=== PATIENT | male | born 1945 | race Caucasian/White ===

== ENCOUNTER 2022-01-24 03:57 | Inpatient (IN) | payer MEDICARE, OTHER ==
[~2022-01-24] VITALS: Ht 188 cm; Wt 78.0 kg
--- NOTE | 2022-01-24 04:12 | NUR ---
BIBRA C/O SYNCOPE IN THE BATHROOM. ABRASION NOTED ON UPPER LIP UPDATED TDAP. A/OX4. TOLERATING R/A WELL WITH NO SOB. CONNECTED PT TO POX AND MONITOR. SAFETY MEASURES IN PLACE.
[2022-01-24] MEDS ORDERED: IV NS 0.9% 500 ML BAG IV ONE (04:30)
--- NOTE | 2022-01-24 04:37 | NUR ---
LENORA DANIELS [phone]
--- NOTE | 2022-01-24 04:52 | NUR ---
RAC #20G S/L BLOOD COLLECTED AND SENT TO LAB
[2022-01-24 04:55] LABS: BASOPHILS % (AUTO) 0.2 % (0.0-2.0); EOSINOPHILS % (AUTO) 0.9 % (0.0-6.0); HEMATOCRIT 42 % (39-51); HEMOGLOBIN 13.9 g/dL (13.5-17.5); LYMPHOCYTES # (AUTO) 1.9 K/uL (0.8-4.8); LYMPHOCYTES % (AUTO) 23.2 % (20.0-44.0); MEAN CORPUSCULAR HGB CONC 33 g/dl (31.0-36.0); MEAN CORPUSCULAR VOLUME 87 fL (80-96); MONOCYTES # (AUTO) 0.8 K/uL (0.1-1.30); NEUTROPHILS # (AUTO) 5.6 K/uL (1.8-8.9); NEUTROPHILS % (AUTO) 66.7 % (43.0-81.0); PLATELET COUNT (AUTO) 138 K/uL (150-450); WHITE BLOOD COUNT (AUTO) 8.4 K/uL (4.3-11.0)
--- NOTE | 2022-01-24 05:05 | NUR ---
URINE COLLECTED AND SENT TO LAB
--- NOTE | 2022-01-24 05:05 | NUR ---
PT TAKEN TO CT VIA [facility]
[2022-01-24 05:07] LABS: CARBON DIOXIDE 28 mmol/L (21-32); CHLORIDE 108 mmol/L (98-107); CREATININE 1.1 mg/dL (0.6-1.3); GLUCOSE 110 mg/dL (74-106); POTASSIUM 4.1 mmol/L (3.5-5.1); SODIUM SERUM 141 mmol/L (136-145); UREA NITROGEN, BLOOD 24 mg/dL (7-18)
[2022-01-24 05:13] LABS: ALANINE AMINOTRANSFERASE 75 U/L (12-78); ALBUMIN 3.4 g/dL (3.4-5.0); ALKALINE PHOSPHATASE 100 U/L (46-116); ASPARTATE AMINOTRANSFERASE 50 U/L (15-37); BILIRUBIN,DIRECT 0.1 mg/dL (0.0-0.2); BILIRUBIN,TOTAL 0.4 mg/dL (0.2-1.0)
--- NOTE | 2022-01-24 07:05 | NUR ---
UPDATED JOCELYNN ([facility]) [phone]
--- NOTE | 2022-01-24 07:15 | NUR ---
Kiki adhikari in [facility] - 01/24/22 at 0719 by BRIDGET ASSISTANT CORPORATE CONTROLLER AT PT'S BEDSIDE
--- NOTE | 2022-01-24 07:24 | NUR ---
MATERIAL HANDLER 2ND SHIFT AT PT'S BEDSIDE
--- NOTE | 2022-01-24 07:30 | NUR ---
RECEIVED PT IN [place]Y AWAKE AND ALERT NO PAIN NOTED OR DIZZNESS AT THINS TIME
--- NOTE | 2022-01-24 08:14 | NUR ---
LAB CALLED AGNIESZKA Faye.5 DR. CHANDRA INFORMED.
--- NOTE | 2022-01-24 08:22 | NUR ---
MOVE SHEET SUBMITTED.
--- NOTE | 2022-01-24 08:27 | NUR ---
COVID SWAB COLLECTED AND SENT TO LAB
--- NOTE | 2022-01-24 08:31 | NUR ---
[facility] CALLED CLEANING AND MAINTENANCE WORKER PAGED.
[2022-01-24] MEDS ORDERED: MAG HYDROX/AL HYDROX/SIMETH 30 ML UDC PO PRN (09:00)
[2022-01-24] MEDS ORDERED: ACETAMINOPHEN 325 MG TABLET PO PRN (09:00)
[2022-01-24] MEDS ORDERED: ONDANSETRON HCL/PF 4 MG/2 ML VIAL IVP PRN (09:00)
[2022-01-24] MEDS ORDERED: FAMO20TA8 PO (09:03)
[2022-01-24] MEDS ORDERED: ATOR80TA PO (09:03)
[2022-01-24] MEDS ORDERED: TERA10CA4 PO (09:03)
--- NOTE | 2022-01-24 09:50 | NUR ---
DR RUTLEDGE CARDIO AT BEDSIDE
--- NOTE | 2022-01-24 09:50 | NUR ---
Dr Swain (otr hazmat company driver) at for eval.
--- NOTE | 2022-01-24 10:09 | NUR ---
GOT BED 327-2
[2022-01-24] MEDS ORDERED: ASPIRIN EC 81 MG TABLET.DR PO ONE (10:11)
[2022-01-24] MEDS: ASPIRIN 81 MG TAB.CHEW PO SCH ×2 (10:13→10:17)
--- NOTE | 2022-01-24 10:14 | NUR ---
DINESES CHEST PAIN
--- NOTE | 2022-01-24 11:00 | NUR ---
UA SENT TO LAB
--- NOTE | 2022-01-24 11:28 | NUR ---
REPORT GIVEN TO FANNY LACKEY OF TELE
[2022-01-24] MEDS: ENOXAPARIN SODIUM 80 MG/0.8 ML DISP.SYRIN SQ SCH ×2 (11:30→20:07)
--- NOTE | 2022-01-24 11:40 | NUR ---
TO ROOM 322-2 STABLE VS DINESES CHEST PAIN OR SOB
[2022-01-24 11:45] VITALS: BP 108/62
[2022-01-24] MEDS ORDERED: ENOXAPARIN SODIUM 80 MG/0.8 ML DISP.SYRIN SQ ONE (11:45)
--- NOTE | 2022-01-24 11:45 | NUR ---
BENCH MANAGER ADMITTING NOTES: ADMITTED 76YO MALE PT IN MED SURG UNIT @1145AM, VIA GURNEY. PATIENT ABLE TO WALK TO HIS BED. ORIENTED TO STAFFS, UNIT AND ROOM MATE. ALERT AND ORIENTED X 4 AND ABLE TO VERBALIZED NEEDS, PATIENT DENIES PAIN AT THIS TIME. NOTED WITH SOME SKIN ISSUES, NOTED WITH LIP ABRASION WITH DISCOLORATION NOTED. RIGHT ELBOW SCABS NOTED. UNABLE TO CHECK THE BACK PATIENT RESTING WILL TRY LATER. FOOD ASSEMBLER KITCHEN IN PLACED WITH CURRENT READING OF SR 64 BPM. ABDOMEN SOFT AND NOT DISTENDED. ABLE TO LIFT UPPER AND LOWER EXTREMITIES. IV ACCESS ON RAC G20 PATENT AND INTACT, WITH NS @75ML/HR. SAFETY PRECAUTIONS INITIATED: BED LOCKED AND IN LOWEST POSITION, SIDE RAILS UP X 2. CALL LIGHT IN EASY REACH FOR HELP. WILL MONITOR PATIENT ACCORDINGLY.
[2022-01-24] MEDS: IV NS 0.9% 1,000 ML IV PRN (13:28)
--- NOTE | 2022-01-24 15:10 | NUR ---
RN NOTES: RECEIVED A CALL FROM LABORATORY, RELAYED LAB RESULT TROP LEVEL 613. INFORMED DR FROST AND STATED "OKAY THANKS"
[2022-01-24 16:00] VITALS: BP 136/67
--- NOTE | 2022-01-24 16:00 | NUR ---
RN NOTES: PATIENT ASKED HIS LATEST TROP LEVEL, RELAYED TO PATIENT EXPLAINED THATS THE REASON WHY WE KEEP HIM IN THE HOSPITAL AND TO MONITOR HIM. PATIENT APPEARS ANXIOUS, DENIES PAIN OR CHEST PAIN AT THIS TIME. TRIED TO CALM PATIENT.
--- NOTE | 2022-01-24 17:17 | NUR ---
RN NOTES: INFORMED DR FROST THAT PT WANTED TO TALK TO HER. DR FROST STATED SHE WILL. PATIENT MADE AWARE.
--- NOTE | 2022-01-24 18:53 | NUR ---
COPY WORKER OPENING NOTES: PATIENT SITTING IN BED. AWAKE, ALERT AND ORIENTED X 4 AND ABLE TO VERBALIZED NEEDS. NO CHANGE IN LOC. DENIES ANY PAIN AT THIS TIME. NO SOB OR CARDIAC DISTRESS NOTED, ON ROOM AIR AND TOLERATING WELL. ON RETAIL SALES MANAGER WITH CURRENT READING OF SR @ 63BPM. PATIENT USING URINAL. SAFETY PRECAUTIONS MAINTAINED: BED LOCKED AND IN LOWEST POSITION, SIDE RAILS UP X 2. CALL LIGHT IN EASY REACH FOR HELP. WILL MONITOR FOR ANY SIGNIFICANT CHANGES. ENDORSED TO SPORT INTERNSHIP FOR CONTINUIITY OF CARE.
--- NOTE | 2022-01-24 19:30 | NUR ---
TELE/RN OPENING NOTE RECEIVED PATIENT RESTING IN BED. AWAKE, ALERT AND ORIENTED X 4. ABLE TO MAKE NEEDS KNOWN. DENIES PAIN AT THIS TIME. CONTINUES ON ROOM AIR WITH NO S/SX OF RESPIRATORY DISTRESS NOTED. IV ACCESS TO RIGHT AC #20G INTACT AND PATENT. CONTINUES ON IVF NS @ 75ML/HR. CONTINUES ON TELE MONITOR WITH CURRENT READING SR. PATIENT IS AMBULATORY WITH ASSISTANCE. CALL LIGHT WITHIN REACH. ASPIRATION, FALL AND SAFETY PRECAUTIONS MAINTAINED. ALL NEEDS ATTENDED TO AT THIS TIME.
[2022-01-24 20:00] VITALS: BP 138/71
--- NOTE | 2022-01-24 20:55 | NUR ---
TELE/RN NOTE RECEIVED CALL FROM LAB WITH CRITICAL LAB VALUE TROPONIN HIGH SENSITIVITY = 485. TRENDING DOWN FROM PREVIOUS RESULTS. MD AWARE. PATIENT CURRENTLY RESTING IN BED. DENIES PAIN/CP.
[2022-01-24] MEDS: ATORVASTATIN 40 MG TABLET PO SCH (21:21)
[2022-01-24] MEDS ORDERED: ZOLPIDEM TARTRATE 5 MG TABLET PO PRN (22:00)
[2022-01-24] MEDS ORDERED: ATORVASTATIN 10 MG TABLET PO SCH (22:00)
[2022-01-25] VITALS (7 sets, daily range): BP systolic 115–153; BP diastolic 62–76
[2022-01-25] MEDS: IV NS 0.9% 1,000 ML IV PRN ×2 (03:19→15:58)
--- NOTE | 2022-01-25 06:30 | NUR ---
TELE/RN CLOSING NOTE PATIENT CURRENTLY SLEEPING IN BED. ALERT AND ORIENTED X 4. ABLE TO MAKE NEEDS KNOWN. DENIES PAIN AT THIS TIME. CONTINUES ON ROOM AIR WITH NO S/SX OF RESPIRATORY DISTRESS NOTED. IV ACCESS TO RIGHT AC #20G INTACT AND PATENT. CONTINUES ON IVF NS @ 75ML/HR. CONTINUES ON TELE MONITOR WITH CURRENT READING SB HR 49. CALL LIGHT WITHIN REACH. ASPIRATION, FALL AND SAFETY PRECAUTIONS MAINTAINED. WILL ENDORSE PLAN OF CARE TO ONCOMING SHIFT RN.
[2022-01-25 07:11] LABS: HEMATOCRIT 39 % (39-51); HEMOGLOBIN 13.2 g/dL (13.5-17.5); MEAN CORPUSCULAR HGB CONC 34 g/dl (31.0-36.0); MEAN CORPUSCULAR VOLUME 86 fL (80-96); RED BLOOD CELL COUNT(AUTO) 4.54 MIL/uL (4.5-6.0); WHITE BLOOD COUNT (AUTO) 9.8 K/uL (4.3-11.0)
[2022-01-25 07:14] LABS: BASOPHILS % (AUTO) 0.2 % (0.0-2.0); EOSINOPHILS % (AUTO) 0.7 % (0.0-6.0); MONOCYTES % (AUTO) 10.2 % (2.0-12.0); NEUTROPHILS % (AUTO) 62.9 % (43.0-81.0)
[2022-01-25 07:15] LABS: LYMPHOCYTES # (AUTO) 2.6 K/uL (0.8-4.8); NEUTROPHILS # (AUTO) 6.2 K/uL (1.8-8.9)
[2022-01-25 07:48] LABS: CALCIUM, SERUM 8.6 mg/dL (8.5-10.1); CARBON DIOXIDE 25 mmol/L (21-32); CHLORIDE 109 mmol/L (98-107); CREATININE 0.9 mg/dL (0.6-1.3); GLUCOSE 89 mg/dL (74-106); PHOSPHORUS 3.4 mg/dL (2.5-4.9); POTASSIUM 3.5 mmol/L (3.5-5.1); SODIUM SERUM 141 mmol/L (136-145); UREA NITROGEN, BLOOD 16 mg/dL (7-18)
[2022-01-25 07:50] LABS: CHOLESTEROL 111 mg/dL (<200); HDL CHOLESTEROL 43 mg/dL (40-60); LDL 51 mg/dL (0-99); TRIGLYCERIDES 115 mg/dL (30-150)
[2022-01-25] MEDS: FAMOTIDINE (20 MG) 20 MG TABLET PO SCH (08:23)
--- NOTE | 2022-01-25 10:00 | NUR ---
BACKUP SAWYER NOTES: RN CALLED RAD DEPT TO INQUIRE ABOUT PROCEDURE TIME. RAD STAFF STATES THERE IS NO TECH AND WILL HAVE TO BE DONE THURSDAY. RN F/U WITH CHARGE NURSE, WAS ABLE TO CONTACT NURSE SUP. ICU AND NURSE SUP OK'D THE PROCEDURE FOR 01/25/2022 @ 1200 BUT IS AWAITING CALL BACK FROM HEAD UP OPERATOR HELPER TECH, WILL CONT TO FOLLOW UP AND UPDATE PT.
[2022-01-25 11:43] LABS: PLATELET COUNT (AUTO) 28 K/uL (150-450)
--- NOTE | 2022-01-25 15:00 | NUR ---
PHARMACY STOCK CLERK NOTES: RN FOLLOWED UP WITH CHARGE NURSE REGARDING CTCA, STATES THAT SHE FOLLOWED UP WITH RAD AUTO TRANSMISSION SPECIALIST BUT THE SCHOOL AGE TEACHER STUDENT SUPPORT COUNSELOR HAS NOT CALLED BACK, NURSE SUP IS AWARE. WILL CONTINUE TO FOLLOW UP THROUGHOUT SHIFT. MADE PT AWARE, PT AND FAMILY WAS UPSET WITH DELAY, WILL ENDORSE ALL INFO TO PM SHIFT.
--- NOTE | 2022-01-25 17:42 | NUR ---
INSERT MOLDING OPERATOR NOTES: FAMILY FRIEND WHO IS AN MD CALLED, ASKED WHY "CT HAS NOT BEEN DONE AND TROPONIN HASN'T BEEN REDRAWN". RN EXPLAINED THE SITUATION TO PT AT BEDSIDE AND FAMILY OVER THE PHONE. ESCALATED TO MINE PROMOTOR, MAIL SORTER AND DELIVERY AND MD AWARE. POSTAL MAIL CARRIER OFFICE CONTACT INFO GIVEN TO PT AND FAMILY FOR UPDATE.
--- NOTE | 2022-01-25 19:08 | NUR ---
UNION ORGANISER CLOSING NOTES: PATIENT RESTING IN BED, AWAKE, ALERT AND ORIENTED X 4. ABLE TO MAKE NEEDS KNOWN. DENIES PAIN AT THIS TIME. CONTINUES ON ROOM AIR WITH NO S/SX OF RESPIRATORY DISTRESS NOTED. IV ACCESS TO RIGHT AC #20G INTACT AND PATENT. CONTINUES ON IVF NS @ 75ML/HR. CONTINUES ON TELE MONITOR WITH CURRENT READING SINUS BRADYCARDIA, HR- 54, MD IS AWARE. PATIENT IS AMBULATORY WITH ASSISTANCE. CALL LIGHT WITHIN REACH. ASPIRATION, FALL AND SAFETY PRECAUTIONS MAINTAINED, WILL ENDORSE TO PM SHIFT.
--- NOTE | 2022-01-25 20:00 | NUR ---
DIRECTOR OF PUBLIC HEALTH NOTES RECEIVED ON BED A/O X4,NO SOB,MINDI CHEST PAIN, ON IVF NS AT 75ML/HR RATE INFUSING WELL ON RIGHT AC SALINE LOCK.VOICING OUT CONCERN ABOUT PROCEDURE THAT WASNT DONE TODAY.ADVISED AND EXPLAINED ABOUT THE PLAN FOR TO TOMORROW AND HE CALM DOWN.WILL CONTINUE TO MONITOR,CALL LIGHT IN REACH,NEEDS ATTENDED.
[2022-01-25] MEDS: ATORVASTATIN 40 MG TABLET PO SCH (20:53)
[2022-01-26] VITALS (9 sets, daily range): BP systolic 113–149; BP diastolic 56–78
--- NOTE | 2022-01-26 00:30 | NUR ---
RADIAGRAPH OPERATOR NOTES AWAKE,VERY MUCH CONCERN ABOUT HIS BLOOD PRESSURE OF 149/70,PULSE RATE OF48,SAYING THIS THE FIRST TIME HE GOT THAT KIND OF READING,REQUESTING TO HAVE DOCTOR ON FLOOR TO TALK WITH,WAS ADVISED THAT WE HAVE HOSPITALIST LANG PATH THERAPIST ON BOARD,DEMANDING A REAL DOCTOR.AND EVEN ASKED TO HAVE NURSING DISTRIBUTOR SALES MANAGER TO COME AND TALK ABOUT HIS CONCERN.
--- NOTE | 2022-01-26 01:00 | NUR ---
COIL CUTTER NOTES NURSING ALTERATIONS EXPERT CAME AND TALK TO PATIENT.
--- NOTE | 2022-01-26 01:30 | NUR ---
BRAZER ASSEMBLER NOTES HOSPITALIST RE CAME AND TALK TO PATIENT.
--- NOTE | 2022-01-26 02:00 | NUR ---
ELECTRODE TURNER AND FINISHER NOTES PATIENT CALM DOWN THIS TIME
[2022-01-26] MEDS: IV NS 0.9% 1,000 ML IV PRN (06:01)
[2022-01-26 06:50] LABS: CALCIUM, SERUM 8.6 mg/dL (8.5-10.1); CREATININE 0.9 mg/dL (0.6-1.3); POTASSIUM 3.6 mmol/L (3.5-5.1)
--- NOTE | 2022-01-26 07:03 | NUR ---
COMBINATION WINDOW INSTALLER NOTES CALM AND QUIET ON BED,IVF INFUSING WELL,SITE PATENT.POSSIBLE CTCA TODAY.REMAINS SB AT 46.IN NO ACUTE DISTRESS.
[2022-01-26 07:06] LABS: BASOPHILS % (AUTO) 0.4 % (0.0-2.0); EOSINOPHILS % (AUTO) 0.8 % (0.0-6.0); HEMATOCRIT 39 % (39-51); HEMOGLOBIN 13.1 g/dL (13.5-17.5); LYMPHOCYTES # (AUTO) 2.6 K/uL (0.8-4.8); LYMPHOCYTES % (AUTO) 26.6 % (20.0-44.0); MEAN CORPUSCULAR HGB CONC 34 g/dl (31.0-36.0); MEAN CORPUSCULAR VOLUME 86 fL (80-96); MONOCYTES # (AUTO) 0.9 K/uL (0.1-1.30); MONOCYTES % (AUTO) 8.9 % (2.0-12.0); NEUTROPHILS # (AUTO) 6.2 K/uL (1.8-8.9); NEUTROPHILS % (AUTO) 63.3 % (43.0-81.0); RED BLOOD CELL COUNT(AUTO) 4.49 MIL/uL (4.5-6.0); WHITE BLOOD COUNT (AUTO) 9.8 K/uL (4.3-11.0)
--- NOTE | 2022-01-26 07:33 | NUR ---
MOBILE GAME ENGINEER OPENING NOTES: RECEIVED PATIENT RESTING IN BED, AWAKE, ALERT AND ORIENTED X 4. ABLE TO MAKE NEEDS KNOWN. DENIES PAIN AT THIS TIME. CONTINUES ON ROOM AIR WITH NO S/SX OF RESPIRATORY DISTRESS NOTED. IV ACCESS TO RIGHT AC #20G INTACT AND PATENT. CONTINUES ON IVF NS @ 75ML/HR. CONTINUES ON TELE MONITOR WITH CURRENT READING SINUS BRADYCARDIA, HR- 48, MD IS AWARE. PATIENT IS AMBULATORY WITH ASSISTANCE. CALL LIGHT WITHIN REACH. ASPIRATION, FALL AND SAFETY PRECAUTIONS MAINTAINED, WILL CONT TO MONITOR.
[2022-01-26 08:49] LABS: PLATELET COUNT (AUTO) 99 K/uL (150-450)
[2022-01-26] MEDS: FAMOTIDINE (20 MG) 20 MG TABLET PO SCH (09:28)
--- NOTE | 2022-01-26 10:30 | NUR ---
VARNISH FINISHER NOTES: SPOKE TO PT AND PT FAMILY AT BEDSIDE REGARDING UPDATES ABOUT CTCA. RN CALLED RAD BEET WORKER O'MIKE AT [phone] FOR ANY UPDATES. PER JONI, THEY HAVE NOT RECEIVED A CALL BACK FROM FREIGHT UNLOADER CREATIVE ENGAGEMENT DIRECTOR DESPITE MULTIPLE ATTEMPTS. PER JONI, PROCEDURE MIGHT HAVE TO BE DONE Thursday01/27/2022 AND THEY ARE AWARE OF STAT ORDER. PER JONI, MD SEAN, MD DIVINA AND VANESSA ARIZMENDI ARE ALL AWARE. RELAYED ALL INFO TO PT AND FAMILY AT BEDSIDE, WILL UPDATE WITH ANY CHANGES, PT AND FAMILY VERBALIZED UNDERSTANDING.
[2022-01-26 15:24] LABS: IRON, SERUM 63 ug/dl (50-175); TOTAL IRON BINDING CAPACITY 241 ug/dl (250-450)
[2022-01-26 15:32] LABS: FERRITIN 73 ng/mL (8-388)
--- NOTE | 2022-01-26 18:34 | NUR ---
NARROW FABRICS WEAVER CLOSING NOTES: PATIENT RESTING IN BED, AWAKE, ALERT AND ORIENTED X 4. ABLE TO MAKE NEEDS KNOWN. DENIES PAIN AT THIS TIME. CONTINUES ON ROOM AIR WITH NO S/SX OF RESPIRATORY DISTRESS NOTED. IV ACCESS TO RIGHT AC #20G INTACT AND PATENT. CONTINUES ON IVF NS @ 75ML/HR. CONTINUES ON TELE MONITOR WITH CURRENT READING SINUS BRADYCARDIA, HR- 49, MD IS AWARE. PATIENT IS AMBULATORY WITH ASSISTANCE. CALL LIGHT WITHIN REACH. ASPIRATION, FALL AND SAFETY PRECAUTIONS MAINTAINED, WILL ENDORSE TO PM SHIFT.
--- NOTE | 2022-01-26 19:30 | NUR ---
MEAT CUTTER NOTES RECEIVED LAYIING ON BED,BREATHING REGULAR,NOT IN ANY FORM OF DISTRESS,IVF NS AT 75ML/HR RATE INFUSING WELL ON RIGHT AC SALINE LOCK.CALL LIGHT IN REACH,NEEDS ANTICIPATED.
[2022-01-26] MEDS: ATORVASTATIN 40 MG TABLET PO SCH (21:33)
[2022-01-27] VITALS: BP 136/66
[2022-01-27 04:00] VITALS: BP 144/63
[2022-01-27] MEDS: IV NS 0.9% 1,000 ML IV PRN (04:10)
--- NOTE | 2022-01-27 07:00 | NUR ---
NET SORTER NOTES FAIRLY RESTED AT NIGHT,AWAITING TO BE PICK FOR CT ANGIO HEART WITH 3D IMAGE.IN NO ACUTE DISTRESS.
--- NOTE | 2022-01-27 07:20 | NUR ---
RN OPENING NOTE, PT IS AWAKE, ALERT X4. PT SCHEDULED FOR CT ANGIOGRAM THIS MORNING. AWAITING TRANSPORT. NO SIGNS OF RESPIRATORY DISTRESS OR SOB AT THIS TIME. PT ON TELE MONITORING, READING SINUS JER AT 43BPM. IV 20 G IN RIGHT FOREARM INTACT AND PATENT INFUSING AT 75ML/HR OF NORMAL SALINE. DENIES ANY PAIN AT THIS TIME. CALL LIGHT WITHIN REACH, BED IN LOWEST POSITION, SIDE RAILS UP X2. PT RESTING COMFORTABLY. WILL CONTINUE TO MONITOR.
[2022-01-27 08:18] VITALS: BP 149/66
--- NOTE | 2022-01-27 09:00 | NUR ---
FOOD TRAY ASSEMBLER NOTE PATIENT BROUGHT DOWN FOR SCHEDULED PROCEDURE.
--- NOTE | 2022-01-27 09:00 | NUR ---
WOUND CARE CONSULT: PT OFF UNIT AT THIS TIME. SPOKE WITH RN WHO STATES THAT PT HAS DRY ABRASIONS TO LIPS, PRESENT ON ADMISSION. WILL SEE PRN.
[2022-01-27] MEDS ORDERED: IV NS 0.9% 250 ML IV ONE (09:12)
[2022-01-27] MEDS ORDERED: CT SWABBABLE VALVE TRANS SET 1 EA INFUS.SET MC ONE (09:12)
[2022-01-27] MEDS ORDERED: NITROGLYCERIN 0.4 MG/TAB BOTTLE ONE (09:12)
[2022-01-27] MEDS ORDERED: IOHEXOL-350 100 ML VIAL IV ONE (09:12)
[2022-01-27] MEDS ORDERED: NITROGLYCERIN 0.4 MG/TAB BOTTLE SL PRN (09:30)
[2022-01-27] MEDS ORDERED: METOPROLOL TARTRATE INJ 5 MG/5 ML AMPUL IVP PRN (09:30)
[2022-01-27] MEDS: FAMOTIDINE (20 MG) 20 MG TABLET PO SCH (09:58)
--- NOTE | 2022-01-27 10:00 | NUR ---
CABLE RIGGER NOTE PATIENT BACK FROM PROCEDURE. IN STABLE CONDITION. WILL CONTINUE TO MONITOR PATIENT.
[2022-01-27 10:18] VITALS: BP_SYST 105; BP_SYST 121; BP_DIAS 58; BP_DIAS 59
--- NOTE | 2022-01-27 11:30 | NUR ---
MATERIAL HANDLING SUPERVISOR NOTE PATIENT SEEN BY DR. FROST WITH ORDERS FOR DISCHARGE. PATIENT HEALTH TEACHING DONE REGARDING DISCHARGE AND DISCHARGE INSTRUCTIONS. PATIENT VERBALIZED UNDERSTANDING AND APPRECIATION. COMFORT MEASURES PROVIDED. WILL CONTINUE TO MONITOR PATIENT.
[2022-01-27 11:52] VITALS: BP 129/61
--- NOTE | 2022-01-27 13:20 | NUR ---
AIR HOSE COUPLER NOTE PATIENT DISCHARGED AT AROUND 1315 ORDERED. PATIENT VERBALIZED UNDERSTANDING AND APPRECIATION. IV ACCESS REMOVED AND COVERED WITH COTTON. PROCEDURE TOLERATED WELL. PATIETN ACCOMPANIED TO LOBBY AND WAS PICKED UP BY . IN STABLE CONDITION. ENDORSED ACCORDINGLY.
== END 2022-01-27 13:18 | disposition home or self-care (01) | DRG 280 ==
LOC: ER 04:00 → TELE 11:13
PROVIDERS: ADMIT Nurse Practitioner Acute Care; ATTEND Nurse Practitioner Acute Care
DX: I95.1 Orthostatic hypotension (principal); I21.A1 Myocardial infarction type 2; N17.0 Acute kidney failure with tubular necrosis; E86.1 Hypovolemia; E86.0 Dehydration; E78.5 Hyperlipidemia, unspecified; E87.8 Other disorders of electrolyte and fluid balance, not elsewhere classified; N40.0 Benign prostatic hyperplasia without lower urinary tract symptoms; R00.1 Bradycardia, unspecified; D75.82 Heparin induced thrombocytopenia (HIT); N32.81 Overactive bladder
CPT/HCPCS: 36415; 70450-TC; 71045-TC; 75574; 80048-TC; 80061-TC; 80076-TC; 82728-TC; 82962-TC; 83540-TC; 83735-TC; 84100-TC; 84484-TC; 85025-TC; 85730-TC; 87081-TC; 93307-TC; C9803; G0378; J1650; J7030; J7040; J7050; Q9967

== ENCOUNTER 2023-03-10 13:35 | Inpatient (IN) | payer MEDICARE ==
[~2023-03-10] VITALS: Ht 185.4 cm; Wt 80.7 kg
[~2023-03-10 13:35] MED LIST: ATOR80TA PO; FAMO20TA8 PO; TERA10CA4 PO
[2023-03-10 14:15] LABS: CALCIUM, SERUM 10.2 mg/dL (8.5-10.1); CARBON DIOXIDE 24 mmol/L (21-32); CHLORIDE 105 mmol/L (98-107); CREATININE 1.1 mg/dL (0.6-1.3); GLUCOSE 156 mg/dL (74-106); POTASSIUM 4.3 mmol/L (3.5-5.1); SODIUM SERUM 140 mmol/L (136-145); UREA NITROGEN, BLOOD 20 mg/dL (7-18)
[2023-03-10 15:10] LABS: BASOPHILS % (AUTO) 0.2 % (0.0-2.0); EOSINOPHILS % (AUTO) 0.3 % (0.0-6.0); HEMATOCRIT 42 % (39-51); HEMOGLOBIN 13.9 g/dL (13.5-17.5); LYMPHOCYTES # (AUTO) 0.9 K/uL (0.8-4.8); LYMPHOCYTES % (AUTO) 7.8 % (20.0-44.0); MEAN CORPUSCULAR HEMOGLOBIN 30 PG (26.0-33.0); MEAN CORPUSCULAR HGB CONC 33 g/dl (31.0-36.0); MEAN CORPUSCULAR VOLUME 88 fL (80-96); MONOCYTES # (AUTO) 0.7 K/uL (0.1-1.30); MONOCYTES % (AUTO) 6.1 % (2.0-12.0); NEUTROPHILS # (AUTO) 10.3 K/uL (1.8-8.9); NEUTROPHILS % (AUTO) 85.6 % (43.0-81.0); PLATELET COUNT (AUTO) 98 K/uL (150-450); RED BLOOD CELL COUNT(AUTO) 4.71 MIL/uL (4.5-6.0); RED CELL DISTRIBUTION WIDTH 13.5 % (11.5-15.0)
[2023-03-10] MEDS ORDERED: ZOLP5TAB8 PO (15:11)
[2023-03-10] MEDS ORDERED: SPIR25TA6 PO (15:11)
[2023-03-10] MEDS ORDERED: AMLO10TA4 PO (15:11)
[2023-03-10] MEDS ORDERED: METO25TA6 PO (15:11)
[2023-03-10 15:39] LABS: LACTIC ACID 2.3 mmol/L (0.4-2.0)
[2023-03-10] MEDS ORDERED: VANCOMYCIN 1 GM /D5W 250 ML PB IV ONE (15:40)
[2023-03-10] MEDS: VANCOMYCIN 1 GM in IV D5W 250 ML IV ONE ×2 (15:41→15:46)
[2023-03-10 15:57] LABS: INR 1.05 (0.91-1.10); PROTHROMBIN TIME 11.1 SECS (9.2-11.1)
[2023-03-10] MEDS ORDERED: CEFEPIME 1 GM in IV D5W 50 ML IV ONE (16:00)
[2023-03-10] MEDS ORDERED: DIATR MEGLU/DIATRIZOATE SODIUM 30 ML BOTTLE (GASTROGRAPHIN) ONE (16:03)
[2023-03-10 16:29] LABS: BAND % (MANUAL) 2 % (0.0-5.0); EOSINOPHILS % (MANUAL) 1 % (0-4); LYMPHOCYTES % (MANUAL) 12 % (16-48); MONOCYTES % (MANUAL) 7 % (0-11.0); NEUTROPHILS % (MANUAL) 78 (42-76); PLATELET ESTIMATE PLATELET CLUMPS SEEN
[2023-03-10] MEDS ORDERED: ONDANSETRON HCL/PF 4 MG/2 ML VIAL IVP PRN (16:30)
[2023-03-10] MEDS ORDERED: ACETAMINOPHEN 325 MG TABLET PO PRN (16:30)
[2023-03-10] MEDS ORDERED: IV NS 0.9% 1,000 ML IV PRN (16:30)
[2023-03-10] MEDS ORDERED: MORPHINE SULFATE INJ 2 MG/ML DISP.SYRIN IV ONE (16:30)
[2023-03-10] MEDS ORDERED: ONDANSETRON HCL/PF 4 MG/2 ML VIAL ONE (16:31)
[2023-03-10] MEDS ORDERED: MORPHINE SULFATE INJ 4 MG/ML DISP.SYRIN ONE (16:32)
[2023-03-10] MEDS ORDERED: HYDROMORPHONE 1 MG/1 ML DISP.SYRIN ONE (16:47)
[2023-03-10] MEDS ORDERED: IV NS 0.9% 1,000 ML BAG IV ONE (17:00)
[2023-03-10] MEDS ORDERED: HYDROMORPHONE 1 MG/1 ML DISP.SYRIN IV ONE (17:00)
[2023-03-10 18:22] LABS: LACTIC ACID REFLEX 1.5 mmol/L (0.4-1.9)
[2023-03-10] MEDS ORDERED: ANESTHESIA TRAY IN PYXIS 1 EA TRAY MC ONE (18:41)
[2023-03-10] MEDS ORDERED: BUPIVACAINE 0.5 % PF 150 MG/30 ML VIAL ONE (18:41)
[2023-03-10] MEDS ORDERED: LIDOCAINE MPF 1%-EPI 1:200,000 30 ML VIAL IJ ONE (18:42)
[2023-03-10 19:01] LABS: BILIRUBIN,DIRECT 0.1 mg/dL (0.0-0.2); BILIRUBIN,TOTAL 0.6 mg/dL (0.2-1.0)
[2023-03-10] MEDS ORDERED: FENTANYL PF 250MCG/5ML AMPUL ONE (19:17)
[2023-03-10] MEDS ORDERED: MIDAZOLAM HCL 2 MG/2ML VIAL ONE (19:17)
[2023-03-10] MEDS ORDERED: ROCURONIUM BROMIDE 50 MG/5 ML ONE (19:18)
[2023-03-10] MEDS ORDERED: HYDROMORPHONE INJ 2 MG/ML DISP.SYRIN ONE (19:18)
[2023-03-10] MEDS ORDERED: FAMOTIDINE/PF INJ 20 MG/2 ML VIAL IV ONE (19:18)
[2023-03-10] MEDS ORDERED: HYDROMORPHONE INJ 2 MG/ML DISP.SYRIN IV PRN (20:00)
[2023-03-10] MEDS: PIPERACILLIN /TAZOBACTAM 3.375 G in IV D5W 100 ML IV SCH (21:27)
[2023-03-10] MEDS: PANTOPRAZOLE 40 MG VIAL IV SCH (21:35)
[2023-03-10] MEDS ORDERED: IV PREMIX D5 1/2NS + KCL 1,000 ML IV ONE (21:44)
[2023-03-10 22:00] VITALS: BP 136/67; O2SAT 96
[2023-03-10 22:30] VITALS: BP 117/50; O2SAT 95
[2023-03-10] MEDS: Potassium Chloride 20 MEQ in IV D5/0.45 NACL 1,000 ML IV PRN (22:47)
[2023-03-10 23:00] VITALS: BP 128/38; O2SAT 96
[2023-03-10 23:30] VITALS: BP 123/73; O2SAT 96
[2023-03-11] VITALS (14 sets, daily range): BP systolic 115–132; BP diastolic 56–67; TEMP 97.8–99.8; O2SAT 97–100
[2023-03-11 04:13] LABS: BASOPHILS % (AUTO) 0.1 % (0.0-2.0); HEMATOCRIT 41 % (39-51); HEMOGLOBIN 13.3 g/dL (13.5-17.5); LYMPHOCYTES # (AUTO) 0.7 K/uL (0.8-4.8); LYMPHOCYTES % (AUTO) 3.7 % (20.0-44.0); MEAN CORPUSCULAR HEMOGLOBIN 29 PG (26.0-33.0); MEAN CORPUSCULAR HGB CONC 33 g/dl (31.0-36.0); MEAN CORPUSCULAR VOLUME 89 fL (80-96); MONOCYTES # (AUTO) 0.9 K/uL (0.1-1.30); MONOCYTES % (AUTO) 4.7 % (2.0-12.0); NEUTROPHILS % (AUTO) 91.5 % (43.0-81.0); PLATELET COUNT (AUTO) 145 K/uL (150-450); RED BLOOD CELL COUNT(AUTO) 4.54 MIL/uL (4.5-6.0); RED CELL DISTRIBUTION WIDTH 14.1 % (11.5-15.0); WHITE BLOOD COUNT (AUTO) 19.6 K/uL (4.3-11.0)
[2023-03-11 04:23] LABS: CALCIUM, SERUM 8.2 mg/dL (8.5-10.1); CARBON DIOXIDE 24 mmol/L (21-32); CHLORIDE 107 mmol/L (98-107); GLUCOSE 157 mg/dL (74-106); MAGNESIUM 1.7 mg/dL (1.8-2.4); PHOSPHORUS 2.6 mg/dL (2.5-4.9); POTASSIUM 4.6 mmol/L (3.5-5.1); SODIUM SERUM 138 mmol/L (136-145); UREA NITROGEN, BLOOD 13 mg/dL (7-18)
[2023-03-11 04:26] LABS: CHOLESTEROL 108 mg/dL (<200); HDL CHOLESTEROL 50 mg/dL (40-60); LDL 48 mg/dL (0-99)
[2023-03-11] MEDS: PIPERACILLIN /TAZOBACTAM 3.375 G in IV D5W 100 ML IV SCH ×3 (04:59→21:49)
[2023-03-11 06:49] LABS: TRIGLYCERIDES 52 mg/dL (30-150)
[2023-03-11] MEDS: PANTOPRAZOLE 40 MG VIAL IV SCH (08:03)
[2023-03-11] MEDS: Magnesium 1GM/D5W 100ML PREMIX 100 ML IV SCH ×2 (08:55→09:55)
[2023-03-11] MEDS ORDERED: PANTOPRAZOLE 40 MG VIAL IV SCH (09:00)
[2023-03-11] MEDS ORDERED: MENTHOL/CETYLPYRD (CEPACOL) 1 LOZ LOZENGE PO PRN (09:00)
[2023-03-11] MEDS: Potassium Chloride 20 MEQ in IV D5/0.45 NACL 1,000 ML IV PRN (15:52)
[2023-03-12] VITALS: BP 129/64; TEMP 98.7; O2SAT 98
[2023-03-12 04:00] VITALS: BP 125/58; TEMP 99.3; O2SAT 98
[2023-03-12] MEDS: PIPERACILLIN /TAZOBACTAM 3.375 G in IV D5W 100 ML IV SCH ×3 (04:57→20:26)
[2023-03-12 08:00] VITALS: BP 129/61; TEMP 98.8; O2SAT 100
[2023-03-12] MEDS: PANTOPRAZOLE 40 MG VIAL IV SCH (09:16)
[2023-03-12 10:55] LABS: CALCIUM, SERUM 8.9 mg/dL (8.5-10.1); CARBON DIOXIDE 24 mmol/L (21-32); CHLORIDE 105 mmol/L (98-107); GLUCOSE 137 mg/dL (74-106); SODIUM SERUM 135 mmol/L (136-145); UREA NITROGEN, BLOOD 12 mg/dL (7-18)
[2023-03-12 11:34] LABS: BASOPHILS % (AUTO) 0.1 % (0.0-2.0); EOSINOPHILS % (AUTO) 0.1 % (0.0-6.0); HEMATOCRIT 40 % (39-51); HEMOGLOBIN 13.4 g/dL (13.5-17.5); LYMPHOCYTES # (AUTO) 0.8 K/uL (0.8-4.8); LYMPHOCYTES % (AUTO) 5.5 % (20.0-44.0); MEAN CORPUSCULAR HEMOGLOBIN 30 PG (26.0-33.0); MEAN CORPUSCULAR HGB CONC 34 g/dl (31.0-36.0); MEAN CORPUSCULAR VOLUME 89 fL (80-96); MONOCYTES % (AUTO) 6.8 % (2.0-12.0); NEUTROPHILS # (AUTO) 13.1 K/uL (1.8-8.9); NEUTROPHILS % (AUTO) 87.5 % (43.0-81.0); RED BLOOD CELL COUNT(AUTO) 4.48 MIL/uL (4.5-6.0); RED CELL DISTRIBUTION WIDTH 14.1 % (11.5-15.0)
[2023-03-12] MEDS: HYDROMORPHONE 1 MG/1 ML DISP.SYRIN IV PRN ×2 (13:23→20:12)
[2023-03-12] MEDS: IV D5/ 0.9% NACL 1,000 ML IV PRN (13:43)
[2023-03-12 13:53] LABS: LYMPHOCYTES % (MANUAL) 5 % (16-48); MONOCYTES % (MANUAL) 6 % (0-11.0); NEUTROPHILS % (MANUAL) 89 (42-76)
[2023-03-12 13:54] LABS: ANISOCYTOSIS 1+
[2023-03-12 15:34] LABS: PLATELET COUNT (AUTO) 125 K/uL (150-450)
[2023-03-12 16:00] VITALS: BP 116/66; TEMP 97.3; O2SAT 99
[2023-03-12 20:00] VITALS: BP 129/66; TEMP 98.4; O2SAT 98
[2023-03-13] MEDS: HYDROMORPHONE 1 MG/1 ML DISP.SYRIN IV PRN ×2 (02:55→11:47)
[2023-03-13] MEDS: IV D5/ 0.9% NACL 1,000 ML IV PRN (04:27)
[2023-03-13] MEDS: PIPERACILLIN /TAZOBACTAM 3.375 G in IV D5W 100 ML IV SCH ×3 (04:33→21:33)
[2023-03-13 05:54] LABS: BASOPHILS % (AUTO) 0.3 % (0.0-2.0); EOSINOPHILS % (AUTO) 0.4 % (0.0-6.0); HEMATOCRIT 39 % (39-51); HEMOGLOBIN 12.9 g/dL (13.5-17.5); LYMPHOCYTES # (AUTO) 0.7 K/uL (0.8-4.8); LYMPHOCYTES % (AUTO) 6.8 % (20.0-44.0); MEAN CORPUSCULAR HEMOGLOBIN 30 PG (26.0-33.0); MEAN CORPUSCULAR HGB CONC 33 g/dl (31.0-36.0); MEAN CORPUSCULAR VOLUME 89 fL (80-96); MONOCYTES # (AUTO) 0.8 K/uL (0.1-1.30); NEUTROPHILS # (AUTO) 9.4 K/uL (1.8-8.9); NEUTROPHILS % (AUTO) 85.5 % (43.0-81.0); PLATELET COUNT (AUTO) 127 K/uL (150-450); RED BLOOD CELL COUNT(AUTO) 4.34 MIL/uL (4.5-6.0); RED CELL DISTRIBUTION WIDTH 14.2 % (11.5-15.0)
[2023-03-13 06:13] LABS: CALCIUM, SERUM 8.4 mg/dL (8.5-10.1); CREATININE 0.8 mg/dL (0.6-1.3); MAGNESIUM 1.9 mg/dL (1.8-2.4); PHOSPHORUS 2.9 mg/dL (2.5-4.9); POTASSIUM 3.7 mmol/L (3.5-5.1)
[2023-03-13 07:00] VITALS: BP 125/70; TEMP 97.9; O2SAT 99
[2023-03-13] MEDS: PANTOPRAZOLE 40 MG VIAL IV SCH (08:31)
[2023-03-13] MEDS ORDERED: SIMETHICONE/SOD BICARB/CIT AC 1 EACH GRAN.EF.PK PO ONE (10:44)
[2023-03-13] MEDS ORDERED: DIATR MEGLU/DIATRIZOATE SODIUM 120 ML BOTTLE (GASTROGRAPHIN) ONE (10:45)
[2023-03-13 16:00] VITALS: BP 126/69; TEMP 97.6; O2SAT 98
[2023-03-13 20:00] VITALS: BP 149/84; TEMP 97.9; O2SAT 95
[2023-03-14] MEDS: PIPERACILLIN /TAZOBACTAM 3.375 G in IV D5W 100 ML IV SCH ×3 (05:25→21:03)
[2023-03-14 07:00] VITALS: BP 135/72; TEMP 97.9; O2SAT 94
[2023-03-14] MEDS: PANTOPRAZOLE 40 MG VIAL IV SCH (09:21)
[2023-03-14 16:00] VITALS: BP 127/60; TEMP 97.8; O2SAT 94
[2023-03-14] MEDS ORDERED: ZOLPIDEM TARTRATE 5 MG TABLET PO PRN (17:00)
[2023-03-14] MEDS: METOPROLOL TARTRATE 25 MG TABLET PO SCH (17:17)
[2023-03-14 20:00] VITALS: BP 130/59; TEMP 98.2; O2SAT 93
[2023-03-14] MEDS: ATORVASTATIN 40 MG TABLET PO SCH (22:46)
[2023-03-15] MEDS: IV D5/ 0.9% NACL 1,000 ML IV PRN (04:58)
[2023-03-15] MEDS: PIPERACILLIN /TAZOBACTAM 3.375 G in IV D5W 100 ML IV SCH ×2 (04:59→13:12)
[2023-03-15 06:23] LABS: BASOPHILS % (AUTO) 0.4 % (0.0-2.0); EOSINOPHILS # (AUTO) 0.1 K/uL (0.0-0.7); EOSINOPHILS % (AUTO) 1.7 % (0.0-6.0); HEMATOCRIT 36 % (39-51); HEMOGLOBIN 12.2 g/dL (13.5-17.5); LYMPHOCYTES # (AUTO) 1.2 K/uL (0.8-4.8); MEAN CORPUSCULAR HEMOGLOBIN 30 PG (26.0-33.0); MEAN CORPUSCULAR HGB CONC 34 g/dl (31.0-36.0); MEAN CORPUSCULAR VOLUME 88 fL (80-96); MONOCYTES # (AUTO) 0.8 K/uL (0.1-1.30); MONOCYTES % (AUTO) 10.8 % (2.0-12.0); NEUTROPHILS % (AUTO) 70.1 % (43.0-81.0); PLATELET COUNT (AUTO) 112 K/uL (150-450); RED BLOOD CELL COUNT(AUTO) 4.11 MIL/uL (4.5-6.0); RED CELL DISTRIBUTION WIDTH 13.9 % (11.5-15.0); WHITE BLOOD COUNT (AUTO) 7.1 K/uL (4.3-11.0)
[2023-03-15 07:43] LABS: CALCIUM, SERUM 8.7 mg/dL (8.5-10.1); CARBON DIOXIDE 26 mmol/L (21-32); CHLORIDE 108 mmol/L (98-107); CREATININE 0.9 mg/dL (0.6-1.3); GLUCOSE 100 mg/dL (74-106); MAGNESIUM 1.9 mg/dL (1.8-2.4); PHOSPHORUS 3.3 mg/dL (2.5-4.9); POTASSIUM 3.3 mmol/L (3.5-5.1); SODIUM SERUM 142 mmol/L (136-145); UREA NITROGEN, BLOOD 11 mg/dL (7-18)
[2023-03-15 08:00] VITALS: BP 134/57; TEMP 98.6; O2SAT 93
[2023-03-15] MEDS: METOPROLOL TARTRATE 25 MG TABLET PO SCH ×2 (09:07→17:00)
[2023-03-15] MEDS: AMLODIPINE BESYLATE 10 MG TABLET PO SCH (09:08)
[2023-03-15] MEDS: PANTOPRAZOLE 40 MG TABLET.DR PO SCH (09:08)
[2023-03-15] MEDS: SPIRONOLACTONE 25 MG TABLET PO SCH (09:08)
[2023-03-15] MEDS ORDERED: POTASSIUM CHLORIDE 20 MEQ TAB.PRT.SR PO ONE (10:00)
[2023-03-15 11:27] LABS: PLATELET ESTIMATE DECRE
[2023-03-15 11:28] LABS: ANISOCYTOSIS 1+
[2023-03-15] MEDS ORDERED: MAGNESIUM HYDROXIDE 30 ML UDC PO PRN (14:00)
[2023-03-15 16:00] VITALS: BP 117/57; TEMP 98.6; O2SAT 96
[2023-03-15 19:00] VITALS: BP 120/54; TEMP 97.9; O2SAT 97
[2023-03-15] MEDS: CIPROFLOXACIN HCL 500 MG TABLET PO SCH (20:13)
[2023-03-15] MEDS: METRONIDAZOLE 500 MG TABLET PO SCH (20:13)
[2023-03-15] MEDS: ATORVASTATIN 40 MG TABLET PO SCH (21:45)
[2023-03-16] MEDS: METRONIDAZOLE 500 MG TABLET PO SCH ×3 (05:11→21:13)
[2023-03-16 08:00] VITALS: BP 122/61; TEMP 98.6; O2SAT 95
[2023-03-16] MEDS: METOPROLOL TARTRATE 25 MG TABLET PO SCH ×2 (09:00→16:45)
[2023-03-16] MEDS: AMLODIPINE BESYLATE 10 MG TABLET PO SCH (09:29)
[2023-03-16] MEDS: SPIRONOLACTONE 25 MG TABLET PO SCH (09:30)
[2023-03-16] MEDS: PANTOPRAZOLE 40 MG TABLET.DR PO SCH (09:30)
[2023-03-16] MEDS: CIPROFLOXACIN HCL 500 MG TABLET PO SCH ×2 (09:30→21:13)
[2023-03-16 14:00] VITALS: BP 120/68; TEMP 98.6; O2SAT 99
[2023-03-16] MEDS: ATORVASTATIN 40 MG TABLET PO SCH (21:13)
[2023-03-16 21:55] VITALS: BP 118/72; TEMP 98.2; O2SAT 91
[2023-03-17] MEDS: METRONIDAZOLE 500 MG TABLET PO SCH ×2 (05:38→12:10)
[2023-03-17 07:11] LABS: BASOPHILS # (AUTO) 0.1 K/uL (0.0-0.2); BASOPHILS % (AUTO) 0.5 % (0.0-2.0); EOSINOPHILS # (AUTO) 0.1 K/uL (0.0-0.7); EOSINOPHILS % (AUTO) 1.4 % (0.0-6.0); HEMATOCRIT 40 % (39-51); HEMOGLOBIN 13.5 g/dL (13.5-17.5); LYMPHOCYTES # (AUTO) 1.5 K/uL (0.8-4.8); LYMPHOCYTES % (AUTO) 14.5 % (20.0-44.0); MEAN CORPUSCULAR HEMOGLOBIN 30 PG (26.0-33.0); MEAN CORPUSCULAR HGB CONC 34 g/dl (31.0-36.0); MEAN CORPUSCULAR VOLUME 87 fL (80-96); MONOCYTES % (AUTO) 9.9 % (2.0-12.0); NEUTROPHILS # (AUTO) 7.7 K/uL (1.8-8.9); NEUTROPHILS % (AUTO) 73.7 % (43.0-81.0); PLATELET COUNT (AUTO) 92 K/uL (150-450); RED BLOOD CELL COUNT(AUTO) 4.58 MIL/uL (4.5-6.0); RED CELL DISTRIBUTION WIDTH 13.8 % (11.5-15.0); WHITE BLOOD COUNT (AUTO) 10.4 K/uL (4.3-11.0)
[2023-03-17 07:21] LABS: CALCIUM, SERUM 9.1 mg/dL (8.5-10.1); CARBON DIOXIDE 24 mmol/L (21-32); CHLORIDE 105 mmol/L (98-107); GLUCOSE 101 mg/dL (74-106); MAGNESIUM 1.9 mg/dL (1.8-2.4); PHOSPHORUS 3.6 mg/dL (2.5-4.9); POTASSIUM 3.9 mmol/L (3.5-5.1); SODIUM SERUM 139 mmol/L (136-145); UREA NITROGEN, BLOOD 15 mg/dL (7-18)
[2023-03-17 08:00] VITALS: BP 130/60; TEMP 98.1; O2SAT 94
[2023-03-17] MEDS: SPIRONOLACTONE 25 MG TABLET PO SCH (09:47)
[2023-03-17] MEDS: PANTOPRAZOLE 40 MG TABLET.DR PO SCH (09:48)
[2023-03-17 09:49] LABS: ANISOCYTOSIS 1+; PLATELET ESTIMATE DECRE
[2023-03-17] MEDS: METOPROLOL TARTRATE 25 MG TABLET PO SCH (09:49)
[2023-03-17 09:50] VITALS: BP 130/60
[2023-03-17] MEDS: AMLODIPINE BESYLATE 10 MG TABLET PO SCH (09:50)
[2023-03-17] MEDS: CIPROFLOXACIN HCL 500 MG TABLET PO SCH (09:54)
[2023-03-17] MEDS ORDERED: CIPR-262 PO (10:20)
[2023-03-17] MEDS ORDERED: ACID1TAB12 PO (10:20)
[2023-03-17] MEDS ORDERED: METR500T PO (10:20)
== END 2023-03-17 13:00 | disposition home health service (06) | DRG 326 ==
LOC: ER 13:37 → TELE1 18:24 → ICU 20:45 → TELE 03-11 10:58 → MED 03-12 12:28
PROVIDERS: ADMIT Nurse Practitioner Acute Care; ATTEND Nurse Practitioner Acute Care
PROC: 0DU647Z Supplement Stomach with Autologous Tissue Substitute, Percutaneous Endoscopic Approach (ICD-10-PCS; principal; 2023-03-10)
PROC: 0DB64ZX Excision of Stomach, Percutaneous Endoscopic Approach, Diagnostic (ICD-10-PCS; 2023-03-10)
DX: K25.5 Chronic or unspecified gastric ulcer with perforation (principal); K63.1 Perforation of intestine (nontraumatic); R65.10 Systemic inflammatory response syndrome (SIRS) of non-infectious origin without acute organ dysfunction; E87.20 Acidosis, unspecified; D72.829 Elevated white blood cell count, unspecified; D69.6 Thrombocytopenia, unspecified; K66.8 Other specified disorders of peritoneum; I25.10 Atherosclerotic heart disease of native coronary artery without angina pectoris; K29.70 Gastritis, unspecified, without bleeding; Z79.899 Other long term (current) drug therapy; Z88.8 Allergy status to other drugs, medicaments and biological substances; E78.5 Hyperlipidemia, unspecified; I10 Essential (primary) hypertension
CPT/HCPCS: 36415; 71045-TC; 74246-TC; 80048-TC; 80061-TC; 82247-TC; 82248-TC; 83605-TC; 83735-TC; 83880; 84100-TC; 84484-TC; 85025-TC; 85610-TC; 85730-TC; 86850-TC; 87040-TC; 87081-TC; 88305-TC; 88313-TC; 88342; 93307-TC; 97110-TC; 97116-TC; 97530-TC; A4223; A6402; C9113; G0378; J0690; J0692; J1170; J2250; J2270; J2405; J2543; J2704; J2765; J3010; J3370; J3475; J3480; J3490; J7030; J7040; J7042; J7050; J7060; Q9963